=== PATIENT | female | born 1945 | race Caucasian/White ===

== ENCOUNTER → 2020-06-08 15:08 | Outpatient (BNVA) | payer MEDICARE, BC, SELFPAY | PROVIDERS: Visit Provider Internal Medicine | DX: R76.8 Other specified abnormal immunological findings in serum (principal); Z11.59 Encounter for screening for other viral diseases; Z11.1 Encounter for screening for respiratory tuberculosis | CPT/HCPCS: 80074; 83516; 85025; 85651; 86140; 86431; 86480; 86812; 99203 ==

== ENCOUNTER → 2020-06-28 13:09 | Outpatient (BNVA) | payer MEDICARE, BC, SELFPAY | PROVIDERS: Visit Provider Internal Medicine | DX: M35.3 Polymyalgia rheumatica (principal); R76.8 Other specified abnormal immunological findings in serum; Z79.52 Long term (current) use of systemic steroids | CPT/HCPCS: 99213 ==

== ENCOUNTER 2020-07-09 10:22 | Outpatient (CLI) | payer MEDICARE, BC, SELFPAY ==
--- NOTE | 2020-07-09 13:00 | XR_ITS ---
WS: [id number] Left hand, 2 views, 07/09/2020 Clinical Data: evaluation for inflammatory arthritis Comparison: None. Findings: No fractures or dislocations are seen. The soft tissues are unremarkable. The joint spaces are normal No periarticular demineralization or calcifications are seen. XR/XR hand LT 2V [id number] Impression: Negative left hand.
--- NOTE | 2020-07-09 13:15 | XR_ITS ---
WS: [id number] Left shoulder, AP view, 07/09/2020 Clinical Data: evaluation for inflammatory arthritis Comparison: None. Findings: No fractures or dislocations are seen. The AC joint is normal. The adjacent left clavicle, left scapu la and ribs are normal. The soft tissues are unremarkable. There are clips in the left hilum and left upper lobe from thoracic surgery. Epidural stimulator lead s are seen in the midportion of the thoracic epidural space. XR/XR shoulder LT 1V [id number] Impression: Negative left shoulder.
--- NOTE | 2020-07-09 13:15 | XR_ITS ---
WS: [id number] Right shoulder, AP view, 07/09/2020 Clinical Data: EVALUATION FOR INFLAMMATORY ARTHRITIS Comparison: None. Findings: No fractures or dislocations are seen. The AC joint is normal. The adjacent right clavicle, right sca pula and ribs are normal. The soft tissues are unremarkable. Epidural stimulator wires are noted in the mid thoracic spine. XR/XR shoulder RT 1V [id number] Impression: Negative right shoulder.
--- NOTE | 2020-07-09 13:30 | XR_ITS ---
WS: [id number] Thoracic spine, 3 views, 07/09/2020 Clinical Data: evaluation for inflammatory arthritis Comparison: None. Findings: There is loss of anterior and central height of the T11 vertebral body of less than 25%. Osteoporosis is present. The paravertebral areas are unremarkable. Dorsal stimulator wires are in the epidural th oracic space ending at the T7 vertebral level. There are bassam adjacent to the aortic arch from tho racic surgery. There is no bone erosion of the thoracic vertebral bodies. Slight loss of central vertebral body heig ht of the L1 vertebral body is noted. XR/XR thoracic spine 3V* [id number] Impression: 1. Old compression fracture of the T11 vertebral body and probably the L1 verte bral body. 2. Osteoporosis.
--- NOTE | 2020-07-09 13:45 | XR_ITS ---
WS: [id number] Right hand, 2 views, 07/09/2020 Clinical Data: evaluation for inflammatory arthritis Comparison: None. Findings: No dislocations are seen. There is an old oblique and possibly comminuted fracture of th e midportion of the right fifth proximal phalanx. There are old fractures of the right fourth and fif th metacarpals. The soft tissues are unremarkable. The joint spaces are normal No periarticular demineralization or calcifications are seen. XR/XR hand RT 2V [id number] Impression: 1. Negative for changes of inflammatory arthritis. 2. Old fractures of the right fourth and fifth metacarpals and right fifth prox imal phalanx.
--- NOTE | 2020-07-09 14:00 | XR_ITS ---
WS: [id number] Lateral views of cervical spine in the flexion, extension and neutral positions. 07/09/2020 Clinical Data: neck pain Comparison: None. Findings: No limitation of motion or subluxation on flexion or extension is seen. There is degenerative disc na rrowing at C5-C6 with anterior and posterior spurring. There is no prevertebral soft tissue swelling. No compression fractures are noted. XR/XR cervical spine fl/ex [id number] Impression: 1. Negative for limitation of motion or subluxation on flexion or extension. 2. Degenerative change and degenerative disc disease at C5-C6.
== END 2020-07-09 10:23 | disposition home or self-care (01) ==
LOC: RADWPI 10:31
PROVIDERS: Family Provider Family Medicine; PCP Family Medicine; Visit Provider Internal Medicine
DX: M50.322 Other cervical disc degeneration at C5-C6 level (principal); S22.089A Unspecified fracture of T11-T12 vertebra, initial encounter for closed fracture; M81.0 Age-related osteoporosis without current pathological fracture; M19.90 Unspecified osteoarthritis, unspecified site
CPT/HCPCS: 72040; 72072; 73020; 73120

== ENCOUNTER → 2020-10-11 13:13 | Outpatient (BNVA) | payer MEDICARE, BC, SELFPAY | PROVIDERS: Family Provider Family Medicine; PCP Student in an Organized Health Care Education/Training Program; Visit Provider Internal Medicine | DX: M35.3 Polymyalgia rheumatica (principal); R76.8 Other specified abnormal immunological findings in serum; M70.61 Trochanteric bursitis, right hip; M70.62 Trochanteric bursitis, left hip; Y93.9 Activity, unspecified; Z79.899 Other long term (current) drug therapy; Z87.891 Personal history of nicotine dependence | CPT/HCPCS: 20610; 36415; 80053; 81003; 85025; 86140; 99213; 99214; J3301 ==

== ENCOUNTER → 2021-04-13 12:46 | Outpatient (BNVA) | payer MEDICARE, BC, SELFPAY | PROVIDERS: Family Provider Family Medicine; PCP Student in an Organized Health Care Education/Training Program; Visit Provider Internal Medicine | DX: M35.3 Polymyalgia rheumatica (principal); H35.30 Unspecified macular degeneration; R76.8 Other specified abnormal immunological findings in serum; Z79.899 Other long term (current) drug therapy; Z87.891 Personal history of nicotine dependence | CPT/HCPCS: 84100; 86140; 99214 ==

== ENCOUNTER → 2021-05-25 11:24 | Outpatient (BNVA) | payer MEDICARE, BC, SELFPAY | PROVIDERS: Family Provider Family Medicine; PCP Student in an Organized Health Care Education/Training Program; Visit Provider Internal Medicine | DX: H35.30 Unspecified macular degeneration (principal); M35.3 Polymyalgia rheumatica; R76.8 Other specified abnormal immunological findings in serum; Z79.899 Other long term (current) drug therapy; Z87.891 Personal history of nicotine dependence | CPT/HCPCS: 36415; 72040; 72072; 72100; 80053; 82550; 83735; 85025; 85651; 86140; 99213; 99214 ==

== ENCOUNTER 2021-05-25 13:04 | Outpatient (CLI) | payer MEDICARE, BC, SELFPAY ==
--- NOTE | 2021-05-25 13:16 | XR_ITS ---
WS: [id number] LUMBAR SPINE TECHNIQUE: 3 views of the lumbar spine CLINICAL INFORMATION: M35.3 - Polymyalgia rheumatica COMPARISON: None. FINDINGS: Five sar-kzl-ebyxmdw lumbar vertebral bodies. Osteopenia. Mild lumbar curve. Dorsal spinal stimulator . Mild chronic compression deformity superior endplate L1. No acute appearing compression fractures. Disc space heights relatively well-preserved. Mild disc space narrowing L5-S1. Moderate facet arthrop athy L5-S1. Aortic calcification. XR/XR lumbar spine 2-3V* [id number] IMPRESSION: 1. Osteopenia with mild lumbar curve. 2. Chronic appearing compression deformity superior endplate L1 unchanged from previous. 3. Mild disc space narrowing L5-S1. 4. Moderate facet arthropathy L5-S1. 5. Aortic calcification.
--- NOTE | 2021-05-25 13:16 | XR_ITS ---
WS: [id number] THORACIC SPINE TECHNIQUE: 3 views of the thoracic spine CLINICAL INFORMATION: M35.3 - Polymyalgia rheumatica COMPARISON: None. FINDINGS: Mild thoracic curve convex left. Osteopenia. Mild thoracic kyphosis. Dorsal spinal stimulator with el ectrode leads projected over the mid thoracic spine. Chronic compression deformity with anterior wedg ing in the lower thoracic spine at T11. Chronic appearing compression deformity superior endplate L1. This is unchanged from July 09, 2020. XR/XR thoracic spine 3V* [id number] IMPRESSION: 1. Dorsal spinal stimulator with electrode leads in the mid thoracic spine. 2. No acute appearing compression fractures. 3. Chronic compression deformities with anterior wedging at T11 unchanged from previous. Mild compression superior endplate L1 is also unchanged.
--- NOTE | 2021-05-25 13:16 | XR_ITS ---
WS: [id number] CERVICAL SPINE FLEXION EXTENSION TECHNIQUE: 3 views of the cervical spine: lateral neutral, flexion and extension views. CLINICAL INFORMATION: M35.3 - Polymyalgia rheumatica COMPARISON: July 09, 2020 FINDINGS: Straightening of the normal cervical lordosis. Normal C1-C2 articulation. Mild spondylitic changes. D isc space narrowing worse at C4-C5 C5-C6 and C6-C7. Trace retrolisthesis C5 on C6. No instability on flexion-extension. Normal prevertebral soft tissues. Posterior elements are normal. No other significant findings. XR/XR cervical spine fl/ex [id number] IMPRESSION: 1. Straightening of the normal cervical lordosis. Moderate spondylitic changes . 2. Trace retrolisthesis C5 on C6. 3. No instability on flexion extension.
== END 2021-05-25 13:05 | disposition home or self-care (01) ==
PROVIDERS: PCP Student in an Organized Health Care Education/Training Program; Visit Provider Internal Medicine
DX: M35.3 Polymyalgia rheumatica (principal)
CPT/HCPCS: 72040; 72072; 72100; 80053; 82550; 83735; 85025; 85651; 86140

== ENCOUNTER → 2021-10-26 12:56 | Outpatient (BNVA) | payer MEDICARE, BC, SELFPAY | PROVIDERS: PCP Student in an Organized Health Care Education/Training Program; Visit Provider Internal Medicine | DX: M35.3 Polymyalgia rheumatica (principal); M22.2X9 Patellofemoral disorders, unspecified knee; Z79.52 Long term (current) use of systemic steroids; Z87.891 Personal history of nicotine dependence; H35.30 Unspecified macular degeneration | CPT/HCPCS: 99214 ==

== ENCOUNTER → 2022-04-19 13:52 | Outpatient (BNVA) | payer MEDICARE, BC, SELFPAY | PROVIDERS: PCP Student in an Organized Health Care Education/Training Program; Visit Provider Internal Medicine | DX: H35.30 Unspecified macular degeneration (principal); M35.3 Polymyalgia rheumatica; R10.13 Epigastric pain; Z79.52 Long term (current) use of systemic steroids | CPT/HCPCS: 99214 ==

== ENCOUNTER → 2023-02-26 13:34 | Outpatient (BNVA) | payer MEDICARE, BC, SELFPAY | PROVIDERS: PCP Student in an Organized Health Care Education/Training Program; Visit Provider Internal Medicine | DX: R10.9 Unspecified abdominal pain (principal); M35.3 Polymyalgia rheumatica; H35.30 Unspecified macular degeneration | CPT/HCPCS: 99214 ==

== ENCOUNTER → 2023-06-18 14:31 | Outpatient (BNVA) | payer MEDICARE, BC, SELFPAY | PROVIDERS: PCP Student in an Organized Health Care Education/Training Program; Visit Provider Internal Medicine | DX: M35.3 Polymyalgia rheumatica (principal); H35.30 Unspecified macular degeneration; R76.8 Other specified abnormal immunological findings in serum | CPT/HCPCS: 99213 ==